=== PATIENT | male | born 1945 | race Hispanic/Latino ===

== ENCOUNTER 2018-05-10 11:48 | Observation (INO) | payer OTHER ==
[~2018-05-10] VITALS: Ht 180.3 cm; Wt 98.7 kg
[2018-05-10 12:15] LABS: APPEARANCE,URINE Clear (CLEAR); BILIRUBIN,URINE Negative (NEGATIVE); COLOR,URINE Yellow (YELLOW); GLUCOSE, URINE (UA) TRACE mg/dL (NEGATIVE); KETONES,URINE Negative (NEGATIVE); LEUKOCYTE ESTERASE ,URINE Negative (NEGATIVE); NITRATE,URINE Negative (NEGATIVE); OCCULT BLOOD,URINE Negative (NEGATIVE); PROTEIN,URINE POS 1+ (NEGATIVE)
[2018-05-10 12:24] LABS: BACTERIA,URINE Rare /HPF (None Seen); RBC,URINE 0-1 /HPF (0-1); SQUAMOUS EPITHELIAL CELL,UR Rare /HPF (0-2); WBC,URINE 0-1 /HPF (0-1)
[2018-05-10 12:34] LABS: BASOPHILS % (AUTO) 0.5 % (0.0-5.0); LYMPHOCYTES % (AUTO) 13.2 % (21.0-51.0); MEAN CORPUSCULAR HGB CONC 34.8 g/dL (32.0-36.0); MEAN CORPUSCULAR VOLUME 77.7 fL (79-99); MONOCYTES % (AUTO) 10.3 % (3.0-13.0); PLATELET COUNT (AUTO) 212 K/uL (130-400); RED BLOOD CELL COUNT(AUTO) 3.86 MIL/uL (4.50-6.20); RED CELL DISTRIBUTION WIDTH 20.1 % (11.0-15.5); WHITE BLOOD COUNT (AUTO) 5.2 K/uL (4.8-10.8)
[2018-05-10 12:44] LABS: CREATININE 0.7 mg/dL (0.5-1.5)
[2018-05-10 12:45] LABS: INR 1.01 (0.85-1.15); PARTIAL THROMBOPLASTIN TIME 26.4 SEC (26.3-35.5); PROTHROMBIN TIME 10.6 SEC (9.6-11.6)
[2018-05-10 12:57] LABS: ALBUMIN 3.6 g/dL (3.5-5.0); BILIRUBIN,TOTAL 0.5 mg/dL (0.2-1.0); CREATINE KINASE MB 2.1 ng/mL (0.5-3.6); TOTAL PROTEIN, SERUM 7.1 g/dL (6.0-8.3)
[2018-05-10] MEDS: INSULIN R PO SS1 SQ SCH ×2 (16:30→21:00)
[2018-05-10] MEDS ORDERED: LIDOCAINE HCL 2% VISCOUS 15 ML UDCUP ONE (16:34)
[2018-05-10] MEDS ORDERED: MAG HYDROX/AL HYDROX/SIMETH ES 30 ML SUSP UDCUP ONE (16:34)
[2018-05-10] MEDS ORDERED: NITROGLYCERIN 0.4 MG SL TAB SL ONE (16:35)
[2018-05-10] MEDS ORDERED: IPRATROPIUM/ALBUTEROL SULFATE 3 ML SOLUTION IH ONE (16:41)
[2018-05-10 17:17] LABS: CREATINE KINASE, TOTAL 90 U/L (21-232); MYOGLOBIN 42 ng/mL (10-92); TROPONIN I < 0.04 ng/mL (0.00-0.06)
[2018-05-10] MEDS ORDERED: AZITHROMYCIN 250 MG TABLET PO ONE (17:20)
[2018-05-10] MEDS: IPRATROPIUM/ALBUTEROL SULFATE 3 ML SOLUTION IH SCH ×2 (18:00→22:04)
[2018-05-10] MEDS: AZITHROMYCIN 250 MG TABLET PO SCH (18:00)
[2018-05-10] MEDS ORDERED: METOPROLOL TARTRATE 25 MG TAB PO SCH (21:00)
[2018-05-10 21:17] VITALS: BP 152/61
[2018-05-11 00:28] VITALS: BP 149/67
[2018-05-11 00:55] LABS: CREATINE KINASE MB 2.2 ng/mL (0.5-3.6); CREATINE KINASE, TOTAL 91 U/L (21-232); MYOGLOBIN 50 ng/mL (10-92); TROPONIN I < 0.04 ng/mL (0.00-0.06)
[2018-05-11 04:22] VITALS: BP 143/73
[2018-05-11 05:49] LABS: HEMATOCRIT 29.9 % (42-54); MEAN CORPUSCULAR HEMOGLOBIN 25.6 pg (27.0-33.0); MEAN CORPUSCULAR HGB CONC 33.1 g/dL (32.0-36.0); MEAN CORPUSCULAR VOLUME 77.3 fL (79-99); PLATELET COUNT (AUTO) 207 K/uL (130-400); RED BLOOD CELL COUNT(AUTO) 3.87 MIL/uL (4.50-6.20); WHITE BLOOD COUNT (AUTO) 4.8 K/uL (4.8-10.8)
[2018-05-11 06:02] LABS: ALBUMIN 3.5 g/dL (3.5-5.0); BILIRUBIN,TOTAL 0.7 mg/dL (0.2-1.0); CREATININE 0.7 mg/dL (0.5-1.5); MAGNESIUM 1.7 mg/dL (1.80-2.40); TOTAL PROTEIN, SERUM 6.8 g/dL (6.0-8.3)
[2018-05-11 06:04] LABS: B-TYPE NATRIURETIC PEPTIDE 26 pg/mL (0-100)
[2018-05-11 06:17] LABS: % IRON SATURATION 9.9 % (30-44)
[2018-05-11] MEDS: INSULIN R PO SS1 SQ SCH ×4 (07:08→23:44)
[2018-05-11 08:00] VITALS: BP 150/63
[2018-05-11] MEDS: IPRATROPIUM/ALBUTEROL SULFATE 3 ML SOLUTION IH SCH ×3 (09:58→18:51)
[2018-05-11] MEDS ORDERED: LISINOPRIL 5 MG TABLET PO SCH (10:30)
[2018-05-11] MEDS: LISINOPRIL 5 MG TABLET PO SCH ×2 (10:30→21:15)
[2018-05-11] MEDS ORDERED: LISINOPRIL 5 MG TABLET ONE (10:33)
[2018-05-11 12:00] VITALS: BP_SYST 128; BP_SYST 158; BP_DIAS 109; BP_DIAS 67
[2018-05-11] MEDS: PANTOPRAZOLE SODIUM 40 MG TABLET.DR PO SCH (14:13)
[2018-05-11] MEDS: ASPIRIN 81MG TAB.CHEW PO SCH (14:13)
[2018-05-11] MEDS: ENOXAPARIN SODIUM 40 MG/0.4 ML SYRINGE SQ SCH (14:17)
[2018-05-11 16:00] VITALS: BP 156/65
[2018-05-11] MEDS: AZITHROMYCIN 250 MG TABLET PO SCH (17:45)
[2018-05-11 20:27] VITALS: BP 141/65
[2018-05-11] MEDS ORDERED: METOPROLOL TARTRATE 25 MG TAB PO SCH (21:00)
[2018-05-12] MEDS: IPRATROPIUM/ALBUTEROL SULFATE 3 ML SOLUTION IH SCH ×5 (00:01→23:16)
[2018-05-12 00:04] VITALS: BP 156/70
[2018-05-12 04:24] VITALS: BP 172/71
[2018-05-12 05:25] LABS: CREATININE 0.8 mg/dL (0.5-1.5); POTASSIUM 3.7 mmol/L (3.5-5.1)
[2018-05-12 05:32] LABS: HEMATOCRIT 30.6 % (42-54); MEAN CORPUSCULAR HEMOGLOBIN 25.9 pg (27.0-33.0); MEAN CORPUSCULAR VOLUME 78.7 fL (79-99); NUCLEATED RED BLOOD CELLS 0.1 % (0.0-0.19); PLATELET COUNT (AUTO) 223 K/uL (130-400); RED BLOOD CELL COUNT(AUTO) 3.89 MIL/uL (4.50-6.20); RED CELL DISTRIBUTION WIDTH 19.8 % (11.0-15.5); WHITE BLOOD COUNT (AUTO) 5.4 K/uL (4.8-10.8)
[2018-05-12] MEDS: INSULIN R PO SS1 SQ SCH ×4 (06:01→20:45)
[2018-05-12 08:00] VITALS: BP 162/64
[2018-05-12] MEDS: LISINOPRIL 5 MG TABLET PO SCH ×2 (09:00→20:42)
[2018-05-12] MEDS: METOPROLOL TARTRATE 25 MG TAB PO SCH ×2 (09:00→20:42)
[2018-05-12] MEDS ORDERED: TAMS0.4C32 PO (09:15)
[2018-05-12] MEDS ORDERED: LOSA50TA37 PO (09:15)
[2018-05-12] MEDS ORDERED: PUMP160C PO (09:15)
[2018-05-12] MEDS ORDERED: DILT240C3 PO (09:15)
[2018-05-12] MEDS ORDERED: CLOP75TA32 PO (09:15)
[2018-05-12] MEDS ORDERED: BUDE10.2 IH (09:15)
[2018-05-12] MEDS ORDERED: MELO-106 PO (09:15)
[2018-05-12] MEDS ORDERED: OMEG1CAP67 PO (09:15)
[2018-05-12] MEDS ORDERED: METF10004 PO (09:15)
[2018-05-12] MEDS ORDERED: SITA1TAB6 PO (09:15)
[2018-05-12] MEDS ORDERED: FURO20TA4 PO (09:15)
[2018-05-12] MEDS ORDERED: ROSU40TA20 PO (09:15)
[2018-05-12] MEDS ORDERED: PANT40TA25 PO (09:15)
[2018-05-12] MEDS ORDERED: MORINGA PO (09:15)
[2018-05-12 11:00] VITALS: BP 167/64
[2018-05-12] MEDS ORDERED: REGADENOSON 0.4 MG/5 ML PF SYG IVP SCH (12:30)
[2018-05-12] MEDS: ASPIRIN 81MG TAB.CHEW PO SCH (16:49)
[2018-05-12] MEDS: ENOXAPARIN SODIUM 40 MG/0.4 ML SYRINGE SQ SCH (16:50)
[2018-05-12] MEDS: PANTOPRAZOLE SODIUM 40 MG TABLET.DR PO SCH (16:50)
[2018-05-12] MEDS: AZITHROMYCIN 250 MG TABLET PO SCH (17:00)
[2018-05-12] MEDS ORDERED: SODIUM CHLORIDE 0.9% 500ML 500 ML IV SCH (17:27)
[2018-05-12 17:40] VITALS: BP 151/66
[2018-05-12 20:49] VITALS: BP 152/65
[2018-05-13] VITALS (10 sets, daily range): BP systolic 121–155; BP diastolic 59–99
[2018-05-13] MEDS: INSULIN R PO SS1 SQ SCH ×3 (06:03→16:30)
[2018-05-13] MEDS: IPRATROPIUM/ALBUTEROL SULFATE 3 ML SOLUTION IH SCH ×2 (06:36→11:24)
[2018-05-13] MEDS ORDERED: LIDOCAINE HCL-MPF 2% 5ML VIAL ONE (07:12)
[2018-05-13] MEDS ORDERED: IOHEXOL 350 MG/ML 100ML INFUS..BTL IV ONE (07:12)
[2018-05-13] MEDS ORDERED: IOHEXOL-350 50ML VIAL IV ONE (07:12)
[2018-05-13] MEDS ORDERED: NITROGLYCERIN 5 MG/ML 10 ML VIAL IV ONE (07:12)
[2018-05-13] MEDS ORDERED: BIVALIRUDIN 250 MG/VIAL IV ONE (07:46)
[2018-05-13] MEDS ORDERED: SODIUM CHLORIDE 0.9% 1000ML 1,000 ML IV SCH (08:21)
[2018-05-13] MEDS: METOPROLOL TARTRATE 25 MG TAB PO SCH (09:00)
[2018-05-13] MEDS: ENOXAPARIN SODIUM 40 MG/0.4 ML SYRINGE SQ SCH (09:00)
[2018-05-13] MEDS: PANTOPRAZOLE SODIUM 40 MG TABLET.DR PO SCH (09:00)
[2018-05-13] MEDS: ASPIRIN 81MG TAB.CHEW PO SCH (09:00)
[2018-05-13] MEDS: LISINOPRIL 5 MG TABLET PO SCH (09:00)
== END 2018-05-13 17:05 | disposition home or self-care (01) ==
LOC: EDH 11:48 → EDHIP 13:42 → 3AH 20:23
PROVIDERS: ADMIT Internal Medicine Infectious Disease; ATTEND Internal Medicine Infectious Disease
DX: I25.119 Atherosclerotic heart disease of native coronary artery with unspecified angina pectoris (principal); J44.1 Chronic obstructive pulmonary disease with (acute) exacerbation; D50.9 Iron deficiency anemia, unspecified; E11.51 Type 2 diabetes mellitus with diabetic peripheral angiopathy without gangrene; E66.9 Obesity, unspecified; E78.5 Hyperlipidemia, unspecified; G47.33 Obstructive sleep apnea (adult) (pediatric); I10 Essential (primary) hypertension; F17.210 Nicotine dependence, cigarettes, uncomplicated; Z83.3 Family history of diabetes mellitus; Z95.5 Presence of coronary angioplasty implant and graft; Z90.49 Acquired absence of other specified parts of digestive tract; Z79.82 Long term (current) use of aspirin; Z79.899 Other long term (current) drug therapy
CPT/HCPCS: 36415 ×3; 71045; 78452; 80048; 80053 ×2; 80061; 81001; 82270; 82550 ×3; 82553 ×3; 82728; 82948 ×12; 83540; 83550; 83735; 83874 ×3; 83880 ×2; 84484 ×3; 85025; 85027 ×2; 85610; 85730; 93005; 93017; 93458; 94640 ×12; 94664; 96372 ×2; 99285; A9500 ×2; C1760; C1769; C1894 ×3; G0378 ×75; J1644; J1650 ×2; J1815 ×3; J2785; J3490 ×2; Q9967 ×2; 96374; J0583

== ENCOUNTER → 2021-01-27 | Outpatient (CLI) | payer MEDICARE ==
[~2021-01-27] MED LIST: BUDE10.2 IH; CLOP75TA32 PO; DILT240C97 PO; FURO20TA4 PO; LOSA50TA64 PO; MELO-106 PO; METF-446 PO; MORINGA PO; OMEG1CAP67 PO; PANT40TA54 PO; PUMP160C PO; ROSU40TA21 PO; SITA1TAB6 PO; TAMS0.4C32 PO
== END | disposition home or self-care (01) ==
LOC: SHCH 10:43
PROVIDERS: ATTEND Internal Medicine Cardiovascular Disease
DX: R09.89 Other specified symptoms and signs involving the circulatory and respiratory systems (principal)
CPT/HCPCS: 93306; 93356

== ENCOUNTER → 2021-02-18 | Outpatient (CLI) | payer MEDICARE | END | disposition home or self-care (01) | LOC: SHCH 08:44 | PROVIDERS: ATTEND Internal Medicine Cardiovascular Disease | DX: I65.23 Occlusion and stenosis of bilateral carotid arteries (principal) | CPT/HCPCS: 93880 ==

== ENCOUNTER → 2022-04-06 | Outpatient (CLI) | payer MEDICARE | END | disposition home or self-care (01) | LOC: RAH 09:46 | PROVIDERS: ATTEND Internal Medicine Gastroenterology | DX: K44.9 Diaphragmatic hernia without obstruction or gangrene (principal); E04.2 Nontoxic multinodular goiter; R07.0 Pain in throat; R12 Heartburn | CPT/HCPCS: 74240; 76536 ==

== ENCOUNTER → 2022-12-18 | Outpatient (CLI) | payer MEDICARE ==
[~2022-12-18] MED LIST changes: +OMEG-133 PO; -OMEG1CAP67 PO
== END | disposition home or self-care (01) ==
LOC: RAH 13:18
PROVIDERS: ATTEND Internal Medicine
DX: E04.2 Nontoxic multinodular goiter (principal)
CPT/HCPCS: 76536

== ENCOUNTER → 2023-05-03 | Outpatient (CLI) | payer MEDICARE ==
[2023-05-03 12:02] LABS: CREATININE 0.9 mg/dL (0.5-1.5); POTASSIUM 3.7 mmol/L (3.5-5.1)
[2023-05-03 12:03] LABS: BASOPHILS % (AUTO) 0.5 % (0.0-5.0); LYMPHOCYTES % (AUTO) 12.5 % (21.0-51.0); MEAN CORPUSCULAR HEMOGLOBIN 29.7 pg (27.0-33.0); MEAN CORPUSCULAR HGB CONC 31.4 g/dL (32.0-36.0); MEAN CORPUSCULAR VOLUME 94.7 fL (79-99); NEUTROPHILS % (AUTO) 76.5 % (40.0-77.0); PLATELET COUNT (AUTO) 218 K/uL (130-400); RED CELL DISTRIBUTION WIDTH 14.7 % (11.0-15.5); WHITE BLOOD COUNT (AUTO) 6.1 K/uL (4.8-10.8)
[2023-05-03 12:15] LABS: INR 1.04 (0.85-1.15); PROTHROMBIN TIME 11.3 SEC (9.6-11.6)
[2023-05-03 12:16] LABS: PARTIAL THROMBOPLASTIN TIME 28.8 SEC (26.3-35.5)
== END | disposition home or self-care (01) ==
LOC: LAB 09:18
PROVIDERS: ATTEND Internal Medicine Cardiovascular Disease
DX: Z01.812 Encounter for preprocedural laboratory examination (principal); I87.1 Compression of vein; I87.2 Venous insufficiency (chronic) (peripheral); R06.02 Shortness of breath; I10 Essential (primary) hypertension; I25.10 Atherosclerotic heart disease of native coronary artery without angina pectoris; E11.9 Type 2 diabetes mellitus without complications; Z95.5 Presence of coronary angioplasty implant and graft; Z79.02 Long term (current) use of antithrombotics/antiplatelets; Z79.82 Long term (current) use of aspirin; Z79.84 Long term (current) use of oral hypoglycemic drugs; Z79.899 Other long term (current) drug therapy
CPT/HCPCS: 36415; 80048; 85025; 85610; 85730

== ENCOUNTER → 2023-06-07 | Outpatient (CLI) | payer MEDICARE | END | disposition home or self-care (01) | LOC: RAH 09:51 | PROVIDERS: ATTEND Internal Medicine Cardiovascular Disease | DX: M79.89 Other specified soft tissue disorders (principal); R10.2 Pelvic and perineal pain; M25.562 Pain in left knee; M79.605 Pain in left leg; Z79.82 Long term (current) use of aspirin; Z79.02 Long term (current) use of antithrombotics/antiplatelets; Z79.899 Other long term (current) drug therapy | CPT/HCPCS: 76882 ==

== ENCOUNTER → 2024-04-04 | Outpatient (CLI) | payer MEDICARE ==
[~2024-04-04] MED LIST changes: -ROSU40TA21 PO; +ROSU40TA70 PO
== END | disposition home or self-care (01) ==
LOC: SHCH 10:13
PROVIDERS: ATTEND Internal Medicine Cardiovascular Disease
DX: I70.201 Unspecified atherosclerosis of native arteries of extremities, right leg (principal); I87.2 Venous insufficiency (chronic) (peripheral); I87.1 Compression of vein
CPT/HCPCS: 93925; 93970